=== PATIENT | female | born 1940 | race Caucasian/White ===

== ENCOUNTER → 2023-05-08 | Outpatient (CLI) | payer MEDICARE, SELFPAY ==
[2023-05-08 12:27] VITALS: PULSE 101; PULSE 102; PULSE 104; PULSE 76; PULSE 78; PULSE 85; PULSE 90; PULSE 94; O2SAT 89; O2SAT 90; O2SAT 91; O2SAT 92; O2SAT 93; O2SAT 94
--- NOTE | 2023-05-08 12:29 | CPS ---
PATIENT PUSHED A W/C FOR STABILITY DURING 6MWT. SHE SAID SHE FRACTURED A VERTEBRAE ABOUT A MONTH AGO AND HER LEGS GET TIRED. ENTIRE TEST WAS DONE ON ROOM AIR. PATIENT TOOK 1 REST BREAK DURING TESTING. SHE WALKED 607FT.
--- NOTE | 2023-05-09 10:43 | PCM.PSN.6M ---
PSN 6 Minute Walk Test 6 Minute Walk Test 6 Minute Walk Test: 6 Minute Walk Test PSN:6-Minute Walk Test Start: 05/08/23 12:26 Freq: Status: Active Protocol: RESP.6MINW Document 05/08/23 12:27 [facility] (Rec: 05/08/23 12:33 [facility] [id number]) 6 Minute Walk Test Date Performed 05/08/23 Time Performed 12:00 Height 5 ft 4 in Weight: 152 lb Weight in Pounds 152.[address]: Bob Candelario Assistive device used: Walker Pre-test Oxygen Delivery Method Room Air Pulse Ox 94 Pulse Rate (60-100) 76 Dyspnea Khoi Scale (0-10) 0 1st minute Oxygen Delivery Method Room Air Pulse Ox 91 Pulse Rate (60-100) 85 Dyspnea Khoi Scale (0-10) 0 Number of Rests Taken 0 2nd minute Oxygen Delivery Method Room Air Pulse Ox 90 Pulse Rate (60-100) 90 Dyspnea Khoi Scale (0-10) 1 Number of Rests Taken 0 3rd minute Oxygen Delivery Method Room Air Pulse Ox 89 Pulse Rate (60-100) 94 Dyspnea Khoi Scale (0-10) 1 Number of Rests Taken 0 4th minute Oxygen Delivery Method Room Air Pulse Ox 89 Pulse Rate (60-100) 102 H Dyspnea Khoi Scale (0-10) 2 Number of Rests Taken 1 Reported Symptoms Increased Work of Breathing 5th minute Oxygen Delivery Method Room Air Pulse Ox 92 Pulse Rate (60-100) 101 H Dyspnea Khoi Scale (0-10) 2 Number of Rests Taken 0 Reported Symptoms Increased Work of Breathing 6th minute Oxygen Delivery Method Room Air Pulse Ox 90 Pulse Rate (60-100) 104 H Dyspnea Khoi Scale (0-10) 2 Number of Rests Taken 0 Reported Symptoms Increased Work of Breathing Post-test Oxygen Delivery Method Room Air Pulse Ox 93 Pulse Rate (60-100) 78 Dyspnea Khoi Scale (0-10) 1 Full Laps Walked 10 Partial Lap, Number of Tiles Walked 17 Total Distance Walked (ft) 607 05/08/23 12:29 [facility] Services by Armando PATIENT PUSHED A W/C FOR STABILITY DURING 6MWT. SHE SAID SHE FRACTURED A VERTEBRAE ABOUT A MONTH AGO AND HER LEGS GET TIRED. ENTIRE TEST WAS DONE ON ROOM AIR. PATIENT TOOK 1 REST BREAK DURING TESTING. SHE WALKED 607FT. Initialized on 05/08/23 12:29 - END OF NOTE Interpretation Interpretation: The patient ambulated 607 feet over the course of 6 minutes beginning on room air without assistive devices. Pretesting oxygen saturation was noted to be 94% on room air. With ambulation, the hussein oxygen saturation was 89%. This represents a significant exertional oxygen desaturation. Recommendations Recommendations: There is no indication for the use of supplemental oxygen at this time. However, close interval follow-up was recommended, given the degree of oxygen desaturation noted during this study.
== END | disposition home or self-care (01) ==
PROVIDERS: PCP Family Medicine; Referring Provider Internal Medicine Critical Care Medicine; Visit Provider Internal Medicine Critical Care Medicine
DX: J44.9 Chronic obstructive pulmonary disease, unspecified (principal)
CPT/HCPCS: 94618

== ENCOUNTER 2024-12-07 09:15 | Outpatient (RCR) | payer MEDICARE, SELFPAY ==
[2024-11-23 09:15] VITALS: BP 172/70; PULSE 76; RESP 18; TEMP 36.3; BMI 27.4
[2024-11-30 08:57] VITALS: BP 169/81; PULSE 71; RESP 18; TEMP 36.4; BMI 27.4
[2024-12-07 09:12] VITALS: BP 170/86; PULSE 74; RESP 20; TEMP 36.1; BMI 27.4
== END 2024-12-12 23:59 | disposition home or self-care (01) ==
LOC: WC 09:15
PROVIDERS: PCP Family Medicine; Referring Provider Family Medicine; Visit Provider Surgery
DX: L97.812 Non-pressure chronic ulcer of other part of right lower leg with fat layer exposed (principal); J43.2 Centrilobular emphysema; S81.801S Unspecified open wound, right lower leg, sequela; W22.03XS Walked into furniture, sequela; E88.09 Other disorders of plasma-protein metabolism, not elsewhere classified; J45.909 Unspecified asthma, uncomplicated; M54.16 Radiculopathy, lumbar region; I10 Essential (primary) hypertension; Z79.899 Other long term (current) drug therapy; Z87.891 Personal history of nicotine dependence
CPT/HCPCS: 11042; 99214; G0463

== ENCOUNTER 2024-12-14 08:50 | Outpatient (RCR) | payer MEDICARE, SELFPAY ==
[2024-12-14 08:51] VITALS: BP 178/90; PULSE 91; RESP 18; TEMP 36.6
--- NOTE | 2024-12-16 09:10 | WC ---
PHOTO- RIGHT MARTINS 12/14/24
--- NOTE | 2024-12-16 14:45 | PCM.WC.HP ---
History of Present Illness Date of Service: 12/14/24 Chief Complaint: Right pretibial wound History of Wound: This is an 84 year-old female who was in her normal state of health until October 31, 2024, at which time she inadvertently bumped her right lower extremity against a stepstool. The incident resulted in a wound to the right pretibial surface. The patient had been treated at the [facility], where she had several visits. She was referred to the [facility] by her primary care physician, Dr. Wright. The patient developed cellulitis, for which she was treated with a 10-day course of oral doxycycline. Her wound was treated with topical Neosporin, and she was instructed to leave it open to air. A culture which was obtained was positive for Staphylococcus species. The patient is fairly active for her age. She claims to sleep on a flat mattress at night. She admits to a tendency for her legs to swell. She is not diabetic. She is not a smoker. [facility] Medical History Essential hypertension, benign Osteoporosis Asthma COPD (chronic obstructive pulmonary disease) Sphhr-5-yuafpfodrkjgzeyc deficiency Thoracic kyphosis Lumbar radiculopathy Osteopenia determined by x-ray Non-pressure chronic ulcer of right lower leg with fat layer exposed Compression fx, thoracic spine Unspecified asthma Home Medications ?Medication ?Instructions ?Recorded ?Last Taken ?Type albuterol sulfate 90 mcg/actuation 2 puff inhalation Q6H PRN 04/16/23 Unknown History aerosol inhaler shortness of breath or wheezing calcium 600 mg (as 1 tab PO DAILY 04/16/23 Unknown History carbonate)-vitamin D3 5 mcg (200 unit) tablet celecoxib 100 mg capsule (Celebrex) 100 mg PO BID 04/16/23 Unknown History diltiazem HCl 300 mg 300 mg PO DAILY 04/16/23 Unknown History capsule,extended release 24 hr fluticasone propionate 50 2 spray intranasal DAILY 04/16/23 Unknown History mcg/actuation nasal spray,suspension hydrochlorothiazide 25 mg tablet 25 mg PO DAILY 04/16/23 Unknown History hydrocortisone 2.5 % topical cream 1 applic topical TID PRN rash 04/16/23 Unknown History montelukast 10 mg tablet 10 mg PO DAILY 04/16/23 Unknown History multivitamin (One Daily 1 tab PO DAILY 04/16/23 Unknown History Multivitamin tablet) pantoprazole 40 mg tablet,delayed 40 mg PO DAILY 04/16/23 Unknown History release budesonide 160 mcg-glycopyr 9 2 inh inhalation BID #3 ea 01/15/24 Unknown Rx mcg-formot 4.8 mcg/actuation HFA inhaler (Breztri Aerosphere) potassium chloride 10 mEq 10 meq PO DAILY 11/23/24 Unknown History tablet,extended release pregabalin 50 mg capsule 50 mg PO BID 11/23/24 Unknown History Allergy/AdvReac Type Severity Reaction Status Date / Time morphine Allergy Other Verified 11/23/24 09:27 Family History Mother CAD (coronary artery disease) Surgical History History of bladder suspension procedure History of cataract extraction Status post laser cataract surgery of both eyes History of colonoscopy History of total hip replacement Social History Smoking Status: Former smoker Tobacco: How many years used: 42 how long ago did patient quit smokin alcohol intake: never substance use type: does not use Physical Exam Const alert, oriented x3, no apparent distress, average body habitus and no limitations Constitutional Narrative: The patient's BMI is 27.4 General Appearance: cooperative, comfortable, well kempt and well developed Orientation / Consciousness: awake, oriented to person, oriented to place and oriented to time Exam Limitations: no limitations HEENT normocephalic and head/scalp atraumatic Head and Scalp: normal to inspection, normocephalic and atraumatic Nose: external nose normal External Ear: external ears normal Eyes EOMs intact bilaterally General Eye: normal appearance of both eyes Resp normal respiratory effort, normal air movement, no retractions and no use of accessory muscles Effort and Inspection: able to speak in complete sentences Extremity no calf tenderness General Extremity: Negative for clubbing or cyanosis Skin Wound Narrative: No significant swelling or edema are noted in the patient's distal right lower extremity. The right lower extremity is warm and well-perfused. Pedal pulses are easily palpable. The wound on the patient's right pretibial surface is now completely healed and epithelialized. Neuro oriented x3, CN's II-XII intact bilaterally, moves all extremities, no focal motor deficits and no sensory deficits noted Sensorium / Orientation: awake, alert, oriented to person, oriented to place and oriented to time Speech: speech normal Psych Appearance: grossly normal and appropriate Attitude: calm Activity / Motor Behavior: appropriate eye contact Speech: normal speech Mood & Affect: euthymic mood Thought Process: normal thought process Thought Content: normal thought content Attention / Concentration: attention grossly intact Debridement Note Debridement Note No debridement was completed: No debridement was completed today (The patient's wound is completely healed and epithelialized.) Post-Debridement Measurements and Additional Note: Post-Debridement Measurements/Treatment - Nurse 1 - General Ulcer Assessment Start: 12/14/24 08:51 Freq: Status: Active Protocol: MONICA Activity Type Activity Date Activity User E-sign Co-sign Detail Recorded Client Recorded Date Recorded By Document 12/14/24 08:51 [facility] [id number] 12/14/24 08:56 [facility] 12/14/24 08:51 - Today's Visit Information Type of service Follow-up Visit (Physician/[employer]PERATOR ) Arrival Mode Ambulatory Transfer Assistance None Patient Identification Verified (Name & Yes ) Patient Requires Transmission-Based No Precautions Vital Signs Temperature (97.8 F-99.1 F) 97.9 F Temperature Source Temporal Pulse Rate (60-100) 91 Pulse Location Monitor Respiratory Rate (12-18) 18 Respiratory rate source Observation Oxygen Delivery Method Room Air Blood Pressure (90/60-120/80) 178/90 H Blood Pressure Mean 119 Source Monitor Position Sitting Blood Pressure Location Left Arm History Since Last Visit- (Skip if this is Patient's initial visit) Have you changed medications since your No last visit? Any new allergies or adverse reactions No Had a fall/change in ADL's that may No increase risk of falls Signs or symptoms of abuse and/or No neglect since last visit Have you been in the hospital since your No last visit? Has dressing in place as prescribed Yes Has compression in place as prescribed Yes Has offloadiing in place as prescribed N/A Experienced any changes in pain level or No management Left Footwear Regular Shoe Right Footwear Regular Shoe Pain Scale: 0-10 Numeric Is Patient Pain Free? Yes - Nurse 1 - General Ulcer Measurement Start: 12/14/24 08:51 Freq: Status: Active Protocol: Activity Type Activity Date Activity User E-sign Co-sign Detail Recorded Client Recorded Date Recorded By Document 12/14/24 08:51 [facility] [id number] 12/14/24 08:56 [facility] 12/14/24 08:51 Wound Center Nurse 1 #1 RT LOWER MARTINS -Combined with other wound No -Current Size (cm) - Length 0.1 -Current Size (cm) - Width 0.1 -Current Size (cm) - Depth 0.1 -Total Square Cm 0.01 -Date of Last Picture (Recall this 12/14/24 field) -Photo Taken Yes -Epithelialization Large 67-100% -Texture (Radha-wound Skin Appearance) Assessed, Scarring -Moisture (Radha-wound Skin Appearance) Assessed,Dry/ Scaly -Color (Radha-wound Skin Appearance) Assessed -Temperature (Radha-wound Skin No Abnormality Appearance) (Pt Warm) -Tenderness on Palpation (Radha-wound No Skin Appearance) -Ulcer Cleansing Rinsed/ Irrigated with Saline -Foul Odor after Cleansing No Right Calf (cm) 32.4 Right Ankle (cm) 18.3 WC - Nurse 2 - General Ulcer CM Notes Start: 12/14/24 08:51 Freq: Status: Active Protocol: Activity Type Activity Date Activity User E-sign Co-sign Detail Recorded Client Recorded Date Recorded By Document 12/14/24 09:25 [facility] [id number] 12/14/24 09:26 [facility] 12/14/24 09:25 Wound Center Nurse 2 #1 RT LOWER MARTINS -Correct Patient Yes -Correct Side, Site, Position No -Correct Procedure No -Procedure Performed No -Post Debridement (cm) - Length 0 -Post Debridement (cm) - Width 0 -Post Debridement (cm) - Depth 0 -Total Square (Post) (cm) 0 -Area of Debridement (cm) - Length 0 -Area of Debridement (cm) - Width 0 -Total Square (Area) (cm) 0 -Wound/Ulcer Outcome Healed- Epithelialized Pain Scale: 0-10 Numeric Is Patient Pain Free? Yes - Nurse 3 - General Ulcer D/C NN Start: 12/14/24 08:51 Freq: Status: Active Protocol: Activity Type Activity Date Activity User E-sign Co-sign Detail Recorded Client Recorded Date Recorded By Document 12/14/24 09:26 [id number] 12/14/24 09:26 12/14/24 09:26 Is Patient Pain Free? Yes WC - Visit Discharge Discharge Condition Stable Ambulatory Status Ambulatory Transportation Private Auto Medication Reconcilliation completed & Yes provided to patient/care provider Clinical Summary of Care Provided Yes Notes: patient healed and discharged. Charges/Coding Visit Charges Office Visits / Consults: 28118 OV L3 Est 20min Assessment/Plan Assessment/Plan (1) Non-pressure chronic ulcer of right lower leg with fat layer exposed: CODE(S): L97.912 - Non-pressure chronic ulcer of unspecified part of right lower leg with fat layer exposed (2) Osteopenia determined by x-ray: CODE(S): M85.80 - Other specified disorders of bone density and structure, unspecified site (3) Lumbar radiculopathy: CODE(S): M54.16 - Radiculopathy, lumbar region (4) Thoracic kyphosis: CODE(S): M40.204 - Unspecified kyphosis, thoracic region QUALIFIERS: Kyphosis type: other secondary Qualified Code(s): M40.14 - Other secondary kyphosis, thoracic region (5) Lezhd-2-lkvpgbdcaafqroml deficiency: CODE(S): E88.09 - Other disorders of plasma-protein metabolism, not elsewhere classified (6) COPD (chronic obstructive pulmonary disease): CODE(S): J44.9 - Chronic obstructive pulmonary disease, unspecified QUALIFIERS: 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 Code(s): J43.2 - Centrilobular emphysema (7) Asthma: CODE(S): J45.909 - Unspecified asthma, uncomplicated (8) Osteoporosis: CODE(S): M81.0 - Age-related osteoporosis without current pathological fracture (9) Essential hypertension, benign: CODE(S): I10 - Essential (primary) hypertension (10) Compression fx, thoracic spine: CODE(S): S22.000A - Wedge compression fracture of unspecified thoracic vertebra, initial encounter for closed fracture (11) History of bladder suspension procedure: CODE(S): Z98.890 - Other specified postprocedural states; Z87.448 - Personal history of other diseases of urinary system (12) History of cataract extraction: CODE(S): Z98.49 - Cataract extraction status, unspecified eye (13) Status post laser cataract surgery of both eyes: CODE(S): Z98.41 - Cataract extraction status, right eye; Z98.42 - Cataract extraction status, left eye (14) History of total hip replacement: CODE(S): Z96.649 - Presence of unspecified artificial hip joint PLAN: Plan This is an 84 year-old female who presented as a referral from her primary care physician at the [facility] for evaluation and management of a right pretibial wound. The wound occurred on October 31, 2024, the result of impacting her leg against a stepstool. Staphylococcus species were isolated in a prior culture, and the patient completed a 10-day course of oral doxycycline. As of today's visit, it is noted that the patient's right pretibial wound is completely healed and epithelialized. Therefore, the patient is to be discharged, and will follow-up henceforth on an as-needed basis. The patient has been encouraged to pad and protect the area for the next 10 to 14 days to avoid inadvertent trauma to the area. She has been encouraged to continue elevating her lower extremities as much as possible, avoiding prolonged idle sitting and standing, and to remain active, which are measures to minimize the likelihood of lower extremity swelling. The application of moisturizing skin lotion has also been recommended. Total time: 22 minutes
== END 2025-01-11 15:46 | disposition home or self-care (01) ==
LOC: WC 08:50
PROVIDERS: PCP Family Medicine; Referring Provider Family Medicine; Visit Provider Surgery
DX: Z09 Encounter for follow-up examination after completed treatment for conditions other than malignant neoplasm (principal); M54.16 Radiculopathy, lumbar region; M40.14 Other secondary kyphosis, thoracic region
CPT/HCPCS: 99213; G0463